=== PATIENT | male | born 1940 | race Caucasian/White ===

== ENCOUNTER 2016-10-31 23:27 | Emergency (ER) | payer MEDICARE, OTHER ==
[2016-10-31 23:37] LABS: Hematocrit 36.4 % (42.0-52.0); Hemoglobin 12.1 gm/dL (13.5-18.0); Mean Cell Volume 86.1 fl (78-100); Mean Corpuscular Hemoglobin 28.6 pg (27-31); Mean Corpuscular Hgb Conc 33.2 g/dl (32-36); Mean Platelet Volume 12.2 fl (6.0-9.5); Neutrophil # 6.4 K/mm3 (1.3-6.0); Neutrophil % 69.6 % (42-75.0); Platelet Count 116 K/mm3 (150-450); Red Blood Count 4.23 M/mm3 (4.7-6.0); Red Cell Distribution Width 13.9 % (11.5-14.0); White Blood Count 9.2 K/mm3 (4.0-10.5)
[2016-10-31 23:49] LABS: Prothrombin Time (Patient) 10.7 Seconds (9.4-11.4)
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
[2016-10-31 23:50] LABS: INR 1.03 INR (0.90-1.10); Partial Thrombolplastin Time 25.2 Seconds (24-32)
[2016-11-01] LABS: ALT 44 U/L (19-67); AST 63 U/L (0-48); Albumin * 3.2 gm/dl (3.4-5.0); Alkaline Phosphatase * 121 U/L (50-170); Amylase * 72 U/L (25-115); Anion Gap 19.3 mmol/L (6.8-13.8); BNP * 317 pg/mL (5-350); Bilirubin, Total 0.4 mg/dL (0.0-1.1); Blood Urea Nitrogen 8 mg/dL (6-23); Ca. Corrected For Albumin 8.8 mg/dL (8.4-10.2); Calcium * 8.5 mg/dL (7.9-10.9); Carbon Dioxide 22.3 mmol/L (24-32.6); Chloride 95 mmol/L (97-106); Glucose * 113 mg/dL (70-110); Lipase 172 U/L (73-393); Potassium 3.6 mmol/L (3.4-4.6); Sodium 133 mmol/L (132-142); Total Protein 6.8 gm/dL (6.2-8.2)
[2016-11-01 00:01] LABS: Troponin I Less than 0.017 ng/ml (0.00-0.10)
[2016-11-01] MEDS: NORMAL SALINE 1,000 ML IV PRN (00:03)
[2016-11-01] MEDS ORDERED: HYDROcodone/ACETAMINOPHEN 1 EACH TABLET ONE (00:11)
[2016-11-01] MEDS: HYDROcodone/ACETAMINOPHEN 1 EACH TABLET PO ONE (00:13)
[2016-11-01] MEDS ORDERED: MORPHINE SULFATE 2 MG/ML DISP.SYRIN ONE (01:13)
[2016-11-01] MEDS: MORPHINE SULFATE 2 MG/ML DISP.SYRIN IV ONE (01:15)
[2016-11-01 01:17] LABS: Urine Bilirubin Negative (NEGATIVE); Urine Blood 25 /ul (NEGATIVE); Urine Ketone Negative (NEGATIVE); Urine Nitrite Negative (NEGATIVE); Urine Protein Negative (NEGATIVE); Urine Specific Gravity <=1.005 SP.GR. (1.005-1.030); Urine Urobilinogen Normal (NORMAL)
[2016-11-01 01:33] LABS: Urine Appearance Clear; Urine Color Pale Yellow
[2016-11-01 01:34] LABS: Urine Bacteria None Seen; Urine RBC 0-5 /hpf (0-5); Urine WBC 0-5 /hpf (0-5)
[2016-11-01 02:23] VITALS: BP 142/80
== END 2016-11-01 01:20 | disposition short-term general hospital (02) ==
LOC: ER 23:27
DX: S12.100A Unspecified displaced fracture of second cervical vertebra, initial encounter for closed fracture (principal); S22.43XA Multiple fractures of ribs, bilateral, initial encounter for closed fracture; Z87.891 Personal history of nicotine dependence; W10.9XXA Fall (on) (from) unspecified stairs and steps, initial encounter
CPT/HCPCS: 36415; 70450; 71010; 72125; 80053; 81001; 82150; 83690; 83880; 84484; 85025; 85610; 85730; 86850; 86900; 93005; 96374; 99285; G0481

== ENCOUNTER 2019-11-15 04:45 | Observation (INO) ==
--- NOTE | 2019-11-15 05:30 | ERNOTE ---
GI Bleeding/Rectal Pain ER Date of Service: 11/15/19 Presenting Symptoms: rectal bleeding Time Seen by Provider: 11/15/19 05:17 Source: patient, family Exam Limitations: no limitations Immunizations: IMMUNIZATION HX Immunizations Up to Date Yes History of Influenza Vaccine Yes Hx Pneumococcal Vaccination Yes Allergies/Adverse Reactions: Allergies No Known Allergies Allergy (Verified 11/15/19 04:56) Home Medications: HOME MEDICATIONS Aspirin [Aspir-Low] 81 mg PO DAILY 11/01/16 [Last Taken 01/24/19] ibuprofen 600 mg tablet 600 mg PO Q6H PRN 12/30/17 [Last Taken Unknown] clopidogrel 75 mg tablet 75 mg PO DAILY #90 tab 03/23/19 [Last Taken Unknown] simvastatin 80 mg tablet 80 mg PO QPM #90 tab 03/23/19 [Last Taken Unknown] pantoprazole 40 mg tablet,delayed release 40 mg PO DAILY #90 tab 05/27/19 [Last Taken Unknown] gabapentin 300 mg capsule 600 mg PO BID #360 cap 08/19/19 [Last Taken Unknown] tramadol 50 mg tablet 100 mg PO TID PRN #180 tab 09/16/19 [Last Taken Unknown] atenolol 25 mg tablet 25 mg PO DAILY #90 tab 10/04/19 [Last Taken Unknown] Narrative: Patient presents to the ED this am with bright red blood per rectum that he noticed this morning when he went to the bathroom. He reports that the blood was gushing from the rectum at home. No vomiting, his bowels have been normal recently. No black stools. No fever, but he felt hot at home. Mild RLQ abdominal discomfort. Review of Systems - Review of Systems Constitutional: Present: See HPI, weakness. Absent: weight loss EYE: Present: no symptoms reported ENT: Present: no symptoms reported Respiratory: Present: other - chronically short of breath due to previous lung resection. Cardiology: Absent: chest pain, palpitations, edema Gastrointestinal/Abdominal: Present: See HPI Genitourinary: Present: no symptoms reported Musculoskeletal: Present: no symptoms reported Skin: Present: no symptoms reported Neurological: Present: no symptoms reported Endocrine: Present: no symptoms reported Hematologic/Lymphatic: Present: no symptoms reported. Absent: easy bruising, easy bleeding Psych: Present: no symptoms reported All Other Systems: All systems neg except as marked Medical History (Last Reviewed 11/15/19 @ 05:44 by Trupti Don MD) Subcapital fracture of neck of left femur (Acute) Non-small cell cancer of left lung (Chronic) Non-small cell cancer of right lung (Chronic) Leucocytosis (Acute) Acute blood loss anemia (Acute) Hangman's fracture (Acute) Multiple fractures of ribs of both sides (Acute) Vasogenic brain edema (Resolved) Onset Date: ~01/10/13 Seizure (Inactive) Rib fracture (Resolved) Pneumothorax (Resolved) Peripheral vascular disease (Chronic) Occlusion and stenosis of bilateral carotid arteries (Acute) Onset Date: ~11/21/09 Neuralgia (Acute) Neck fracture (Resolved) Onset Date: ~11/01/16 C2 Lung cancer (Acute) Onset Date: ~2010 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 Lesion of right lung (Acute) Insomnia (Acute) Hyponatremia (Acute) Hypertension (Chronic) Hyperlipidemia (Chronic) Heart murmur (Resolved) as a child Heart disease (Acute) GERD (gastroesophageal reflux disease) (Acute) Sternum fx (Acute) Carotid artery disease (Acute) neck Brain metastases (Acute) Onset Date: ~12/21/12 Brain lesion (Acute) Onset Date: ~12/21/12 Brain cancer (Acute) [facility] Atherosclerosis of arteries of extremities (Acute) Asthma (Acute) Onset Date: ~06/27/14 Chronic pain Surgical History: Surgical History (Last Reviewed 11/15/19 @ 05:44 by Trupti Don MD) History of angioplasty Onset Date: 09/12/17 History of appendectomy Onset Date: ~1952 History of brain surgery Onset Date: ~09/09/13 Craniotomy; adult tumor resection Dr. Edgar Hua, [facility] History of carotid endarterectomy Onset Date: ~2009 [facility]-left carotid artery History of colonoscopy Onset Date: ~10/25/10 Dr. Guevara-benign hyperplastic polyp @ rectum, benign tubular adenoma @ cecum, benign tubular adenoma @ 40cm History of cystoscopy Onset Date: ~07/05/09 Dr. Shetty History of endarterectomy Onset Date: ~05/2009 stents left and right common femoral History of hemiarthroplasty of left hip Onset Date: ~01/30/16 left hip cemented yvette-arthroplasty per Dr. Pardo History of lobectomy of lung Onset Date: ~2010 left lung upper [facility] History of thoracotomy Onset Date: ~05/03/11 Dr. Tania Das, [facility] Status post insertion of iliac artery stent Onset Date: Unknown right and left lower extremities Family History: Family History (Last Reviewed 11/15/19 @ 05:44 by Trupti Don MD) Brother Alive and well Sister Alive and well Sister Colon polyps Father , age 57 Lung abnormality Mother , age 75 Heart disease Sister , in explosion at ordance plant No problems noted. Sister Kidney stones Sister Pacemaker Brother DVT (deep venous thrombosis) Brother Heart problem Brother Heart problem Brother Heart problem Social History: (Last Reviewed 11/15/19 @ 05:44 by Trupti Don MD) Social History: Marital status: household members: none current occupational status: retired Highest education level completed: 8th grade Service: No Tobacco: Smoking Status: Former smoker Alcohol: alcohol intake: current alcohol intake frequency: 3 or more drinks per day Substance Use: substance use type: does not use Dietary Habits: caffeine: Yes Type: coffee Physical Exam - Physical Exam General Appearance: Present: wd/wn, alert, no apparent distress Head Exam: Present: normal inspection, no evidence of injury Eye Exam: Normal inspection: bilateral, PERRL: bilateral Ears, Nose, Throat: Present: normal ENT inspection Neck: Present: normal inspection, nontender Respiratory: Present: no respiratory distress, normal breath sounds, no accessory muscle use, chest nontender, lungs clear Cardiovascular/Chest: Present: regular rate, rhythm, no murmur, normal peripheral pulses Gastrointestinal/Abdominal: Present: tenderness - mild RLQ, no guarding or rebound., abnormal bowel sounds - hyperactive. , distended, other - some distention.. Absent: guarding, rebound Rectal Exam: Present: other - no active bleeding, but gross blood on rectal exam. Extremity Exam: Present: normal inspection, non-tender Neurological Exam: Present: alert, oriented, normal mood/affect, no motor/sensory deficits Skin Exam: Present: normal color, warm/dry Progress - Results and Orders Patient's Lab Results:: I have reviewed the patient's lab results. - Vital Signs Patient's Vital Signs:: I have reviewed the patient's vital signs. Vital Signs: Vital Signs 11/15/19 04:46 Temperature 36.5 C Pulse Rate 90 Respiratory Rate 20 Blood Pressure 192/83 H O2 Sat by Pulse Oximetry 96 - EKG EKG #1 EKG: NSR EKG Comments: First degree AVB. AK 253 msec. No significant change from 11/01/16. - CT/Ultrasound CT/Ultrasound Narrative: CT abdomen/pelvis done with IV contrast only, patient could not tolerate oral contrast. No acute changes, no masses, abscess, or adenopathy. Dense aortoiliac vascular calcium with no aneurysm. No renal mass, stone, or obstructive uropathy. - Progress/Reassessment Chief Complaint: Rectal Bleeding Progress Note-Subjective: 11/15/19 05:55 Unable to tolerate oral contrast, started vomiting. Will do CT with just IV contrast. Zofran given. Departure Clinical Impression: Rectal bleeding - Departure Disposition: Short Term Hospital Inpatient Condition: Stable Referrals: Suhail Drake DO [Primary Care Provider] -
[2019-11-15] MEDS ORDERED: DIATRIZOATE MEGLUMINE, SODIUM 30 ML BTL PO ONE (05:41)
[2019-11-15 05:51] LABS: Hematocrit 36.6 % (42.0-52.0); Hemoglobin 11.6 gm/dL (13.5-18.0); Mean Cell Volume 89.1 fl (78-100); Mean Corpuscular Hemoglobin 28.2 pg (27-31); Mean Corpuscular Hgb Conc 31.7 g/dl (32-36); Mean Platelet Volume 12.3 fl (8-11.3); Neutrophil # 9.7 K/mm3 (1.3-6.0); Neutrophil % 80.5 % (42-75.0); Platelet Count 150 K/mm3 (150-450); Red Blood Count 4.11 M/mm3 (4.7-6.0); White Blood Count 12.1 K/mm3 (4.0-10.5)
[2019-11-15] MEDS ORDERED: ONDANSETRON HCL/PF 2 MG/ML VIAL IV ONE (05:54)
[2019-11-15 06:01] LABS: Prothrombin Time (Patient) 10.3 Seconds (9.1-10.7)
[2019-11-15 06:03] LABS: INR 1.04 INR (0.92-1.08); Partial Thrombolplastin Time 26.6 Seconds (24-32)
[2019-11-15] MEDS ORDERED: ATENOLOL 50 MG TABLET PO ONE (06:05)
[2019-11-15 06:06] LABS: Albumin * 3.5 gm/dl (3.4-5.0); Anion Gap 18.2 mmol/L (6.8-13.8); BUN/Creatinine Ratio 12.9 (9.0-21.6); Bilirubin, Total 0.2 mg/dL (0.0-1.1); Ca. Corrected For Albumin 9.2 mg/dL (8.4-10.2); Calcium * 9.1 mg/dL (7.9-10.9); Carbon Dioxide 21.5 mmol/L (24-32.6); Potassium 3.7 mmol/L (3.4-4.6); Total Protein 7.4 gm/dL (6.2-8.2)
[2019-11-15] MEDS ORDERED: METOPROLOL TARTRATE 1 MG/ML AMPUL IV ONE (06:11)
[2019-11-15] MEDS ORDERED: MORPHINE SULFATE 2 MG/ML DISP.SYRIN IV ONE (07:32)
[2019-11-15 10:50] LABS: Urine Bilirubin Negative (NEGATIVE); Urine Ketone 5 mg/dL (NEGATIVE); Urine Nitrite Negative (NEGATIVE); Urine Protein Negative (NEGATIVE); Urine Urobilinogen Normal (NORMAL); Urine pH 5.5 pH (5.0-7.0)
[2019-11-15 11:05] LABS: Urine Appearance Clear (CLEAR); Urine Blood Negative /ul (NEGATIVE); Urine Color Pale Yellow
[2019-11-15 11:06] LABS: Urine Bacteria None Seen; Urine RBC None Seen /hpf (0-5); Urine WBC None Seen /hpf (0-5)
[2019-11-15 11:20] LABS: Hematocrit 35.1 % (42.0-52.0); Hemoglobin 11.4 gm/dL (13.5-18.0); Mean Cell Volume 88.2 fl (78-100); Mean Corpuscular Hemoglobin 28.6 pg (27-31); Mean Corpuscular Hgb Conc 32.5 g/dl (32-36); Mean Platelet Volume 12.4 fl (8-11.3); Platelet Count 138 K/mm3 (150-450); Red Blood Count 3.98 M/mm3 (4.7-6.0); White Blood Count 15.9 K/mm3 (4.0-10.5)
[2019-11-15 15:21] LABS: Hematocrit 33.8 % (42.0-52.0); Mean Cell Volume 88.3 fl (78-100); Mean Corpuscular Hemoglobin 28.7 pg (27-31); Mean Corpuscular Hgb Conc 32.5 g/dl (32-36); Mean Platelet Volume 12.3 fl (8-11.3); Platelet Count 163 K/mm3 (150-450); Red Blood Count 3.83 M/mm3 (4.7-6.0); Red Cell Distribution Width 13.1 % (11.5-14.0); White Blood Count 14.1 K/mm3 (4.0-10.5)
--- NOTE | 2019-11-15 15:37 | HPDIS ---
Chief Complaint - Chief Complaint Date of Service: 11/15/19 Time of Service: 12:15 Chief Complaint: Bright red rectal bleeding History of Present Illness: Theo is a 79 yo male with peripheral arterial disease and on plavix. He reports at 0100 this morning he woke to use the bathroom and while passing a bowel movement felt a "pop" and then noticed a lot of bright red blood in the toilet. He went again a few hours later and it was still mostly bright red blood. He presented to the [facility] ER where his hemoglobin was 11.6. He reports no change to medication or diet. No nausea, vomiting, or diarrhea. He reports taking daily stool softener and does not usually strain. Medical History (Last Reviewed 11/15/19 @ 08:08 by Lesly Davies RN) Subcapital fracture of neck of left femur (Acute) Non-small cell cancer of left lung (Chronic) Non-small cell cancer of right lung (Chronic) Leucocytosis (Acute) Acute blood loss anemia (Acute) Hangman's fracture (Acute) Multiple fractures of ribs of both sides (Acute) Vasogenic brain edema (Resolved) Onset Date: ~01/10/13 Seizure (Inactive) Rib fracture (Resolved) Pneumothorax (Resolved) Peripheral vascular disease (Chronic) Occlusion and stenosis of bilateral carotid arteries (Acute) Onset Date: ~11/21/09 Neuralgia (Acute) Neck fracture (Resolved) Onset Date: ~11/01/16 C2 Lung cancer (Acute) Onset Date: ~2010 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 Lesion of right lung (Acute) Insomnia (Acute) Hyponatremia (Acute) Hypertension (Chronic) Hyperlipidemia (Chronic) Heart murmur (Resolved) as a child Heart disease (Acute) GERD (gastroesophageal reflux disease) (Acute) Sternum fx (Acute) Carotid artery disease (Acute) neck Brain metastases (Acute) Onset Date: ~12/21/12 Brain lesion (Acute) Onset Date: ~12/21/12 Brain cancer (Acute) [facility] Atherosclerosis of arteries of extremities (Acute) Asthma (Acute) Onset Date: ~06/27/14 Chronic pain Surgical History: Surgical History (Last Reviewed 11/15/19 @ 08:09 by Lesly Davies RN) History of angioplasty Onset Date: 09/12/17 History of appendectomy Onset Date: ~1952 History of brain surgery Onset Date: ~09/09/13 Craniotomy; adult tumor resection Dr. Edgar Hua, [facility] History of carotid endarterectomy Onset Date: ~2009 [facility]-left carotid artery History of colonoscopy Onset Date: ~10/25/10 Dr. Guevara-benign hyperplastic polyp @ rectum, benign tubular adenoma @ cecum, benign tubular adenoma @ 40cm History of cystoscopy Onset Date: ~07/05/09 Dr. Shetty History of endarterectomy Onset Date: ~05/2009 stents left and right common femoral History of hemiarthroplasty of left hip Onset Date: ~01/30/16 left hip cemented yvette-arthroplasty per Dr. Pardo History of lobectomy of lung Onset Date: ~2010 left lung upper [facility] History of thoracotomy Onset Date: ~05/03/11 Dr. Tania Das, [facility] Status post insertion of iliac artery stent Onset Date: Unknown right and left lower extremities Family History: Family History (Last Reviewed 11/15/19 @ 08:11 by Lesly Davies RN) Brother Alive and well Sister Alive and well Sister Colon polyps Father , age 57 Lung abnormality Mother , age 75 Heart disease Sister , in explosion at [employer] plant No problems noted. Sister Kidney stones Sister Pacemaker Brother DVT (deep venous thrombosis) Brother Heart problem Brother Heart problem Brother Heart problem Social History: (Last Reviewed 11/15/19 @ 08:12 by Lesly Davies RN) Social History: Marital status: lives independently: Yes household members: none current occupational status: retired Highest education level completed: 8th grade Service: No Tobacco: Smoking Status: Former smoker Alcohol: alcohol intake: current Alcohol type: beer alcohol intake frequency: 3 or more drinks per day Substance Use: substance use type: does not use Dietary Habits: caffeine: Yes Type: coffee Review Of Systems (GEN) - Review of Systems Generalized/Overall Review: Absent: Weakness, Chills, Fever EENTM: Present: No Symptoms Reported Respiratory: Absent: Cough, Shortness of Breath Cardiac: Absent: Chest Pain, Edema Abdominal: Present: Bright blood from rectum. Absent: Nausea, Vomiting, Hematemesis, Abdominal Pain, Constipation, Diarrhea, Melena Genitourinary: Absent: Burning, Itching, Urgency, Frequency Musculoskeletal: Present: No Symptoms Reported Neurological: Present: No Symptoms Reported Skin: Present: No Symptoms Reported Endocrine: Present: No Symptoms Reported Immunizations: IMMUNIZATION HX Immunizations Up to Date Yes History of Influenza Vaccine Yes Hx Pneumococcal Vaccination Yes Allergies/Adverse Reactions: Allergies Allergy/AdvReac Type Severity Reaction Status Date / Time No Known Allergies Allergy Verified 11/15/19 08:13 Home Medications: HOME MEDICATIONS Aspirin [Aspir-Low] 81 mg PO DAILY 11/01/16 [Last Taken 01/24/19] ibuprofen 600 mg tablet 600 mg PO Q6H PRN 12/30/17 [Last Taken Unknown] clopidogrel 75 mg tablet 75 mg PO DAILY #90 tab 03/23/19 [Last Taken Unknown] simvastatin 80 mg tablet 80 mg PO QPM #90 tab 03/23/19 [Last Taken Unknown] pantoprazole 40 mg tablet,delayed release 40 mg PO DAILY #90 tab 05/27/19 [Last Taken Unknown] gabapentin 300 mg capsule 600 mg PO BID #360 cap 08/19/19 [Last Taken Unknown] atenolol 25 mg tablet 25 mg PO DAILY #90 tab 10/04/19 [Last Taken Unknown] Cetirizine HCl [All Day Allergy] 10 mg PO DAILY 11/15/19 [Last Taken Unknown] Multivit-Min/FA/Lycopen/Lutein [Centrum Silver Tablet] 1 ea PO DAILY 11/15/19 [Last Taken Unknown] traMADol HCL [Tramadol HCl] 100 mg PO BID 11/15/19 [Last Taken Unknown] Exam - Exam Vital Signs: Vital Signs - Last Taken Temp 36.6 C 11/15/19 14:00 Pulse 95 11/15/19 14:00 Resp 16 11/15/19 14:00 BP 97/52 11/15/19 14:00 Pulse Ox 95 11/15/19 14:00 Constitutional: Present: Alert, Oriented x3, Cooperative ENT Exam: Present: hearing grossly normal Eye Exam: bilateral eye: normal inspection Respiratory: Present: lungs clear, normal breath sounds Cardiovascular/Chest: Present: regular rate, rhythm, no murmur Peripheral Pulses: radial (R): 2+, radial (L): 2+ Abdomen: Present: Normal bowel sounds, soft, nontender, nondistended, no rebound tenderness, no hepatospenomegaly /Rectal: Present: hemorrhoids - external hemorrhoid with tiny open wound, no active drainage/bleeding Skin Exam: Present: normal color, warm/dry, no cyanosis Eye contact: Present: cooperative, good eye contact, normal speech Thoughts: Present: normal thought pattern, no apparent hallucination Diagnostic Studies: Abnormal Lab Results 11/15/19 11/15/19 11/15/19 Range/Units 05:30 05:30 05:30 WBC 12.1 H (4.0-10.5) K/mm3 RBC 4.11 L (4.7-6.0) M/mm3 Hgb 11.6 L (13.5-18.0) gm/dL Hct 36.6 L (42.0-52.0) % MCHC 31.7 L (32-36) g/dl Plt Count (150-450) K/mm3 MPV 12.3 H (8-11.3) fl Immature Gran % (Auto) 0.70 H (0.001-0.429) % Immature Gran # (Auto) 0.08 H (0.000-0.0310) K/mm3 Neutrophils % 80.5 H (42-75.0) % Lymphocytes % 10.9 L (20-51) % Neutrophils # 9.7 H (1.3-6.0) K/mm3 Lymphocytes # 1.31 L (1.5-3.5) k/mm3 Carbon Dioxide 21.5 L (24-32.6) mmol/L Anion Gap 18.2 H (6.8-13.8) mmol/L Random Glucose 117 H (70-110) mg/dL Stool Occult Blood Positive H 11/15/19 Range/Units 11:15 WBC 15.9 H D (4.0-10.5) K/mm3 RBC 3.98 L (4.7-6.0) M/mm3 Hgb 11.4 L (13.5-18.0) gm/dL Hct 35.1 L (42.0-52.0) % MCHC (32-36) g/dl Plt Count 138 L (150-450) K/mm3 MPV 12.4 H (8-11.3) fl Immature Gran % (Auto) (0.001-0.429) % Immature Gran # (Auto) (0.000-0.0310) K/mm3 Neutrophils % (42-75.0) % Lymphocytes % (20-51) % Neutrophils # (1.3-6.0) K/mm3 Lymphocytes # (1.5-3.5) k/mm3 Carbon Dioxide (24-32.6) mmol/L Anion Gap (6.8-13.8) mmol/L Random Glucose (70-110) mg/dL Stool Occult Blood Laboratory Results WBC 15.9 K/mm3 (4.0-10.5) H D 11/15/19 11:15 RBC 3.98 M/mm3 (4.7-6.0) L 11/15/19 11:15 Hgb 11.4 gm/dL (13.5-18.0) L 11/15/19 11:15 Hct 35.1 % (42.0-52.0) L 11/15/19 11:15 MCV 88.2 fl (78-100) 11/15/19 11:15 MCH 28.6 pg (27-31) 11/15/19 11:15 MCHC 32.5 g/dl (32-36) 11/15/19 11:15 RDW 13.0 % (11.5-14.0) 11/15/19 11:15 Plt Count 138 K/mm3 (150-450) L 11/15/19 11:15 MPV 12.4 fl (8-11.3) H 11/15/19 11:15 Immature Gran % (Auto) 0.70 % (0.001-0.429) H 11/15/19 05:30 Immature Gran # (Auto) 0.08 K/mm3 (0.000-0.0310) H 11/15/19 05:30 Neutrophils % 80.5 % (42-75.0) H 11/15/19 05:30 Lymphocytes % 10.9 % (20-51) L 11/15/19 05:30 Monocytes % 7.5 % (0.0-9) 11/15/19 05:30 Eosinophils % 0.2 % (0.0-3.0) 11/15/19 05:30 Basophils % 0.2 % (0.0-1.0) 11/15/19 05:30 Nucleated RBC % 0.0 k/mm3 (0-1) 11/15/19 05:30 Neutrophils # 9.7 K/mm3 (1.3-6.0) H 11/15/19 05:30 Lymphocytes # 1.31 k/mm3 (1.5-3.5) L 11/15/19 05:30 Monocytes # 0.9 k/mm3 (0.0-1.0) 11/15/19 05:30 Eosinophils # 0.0 k/mm3 (0.0-0.7) 11/15/19 05:30 Absolute Basophils 0.0 k/mm3 (0.0-0.1) 11/15/19 05:30 PT 10.3 Seconds (9.1-10.7) 11/15/19 05:30 INR (Anticoag Therapy) 1.04 INR (0.92-1.08) 11/15/19 05:30 PTT ([place]) 26.6 Seconds (24-32) 11/15/19 05:30 Sodium 135 mmol/L (132-142) 11/15/19 05:30 Plasma Sodium 135 mmol/L (130-142) 11/15/19 05:30 Potassium 3.7 mmol/L (3.4-4.6) 11/15/19 05:30 Chloride 99 mmol/L (97-106) 11/15/19 05:30 Carbon Dioxide 21.5 mmol/L (24-32.6) L 11/15/19 05:30 Anion Gap 18.2 mmol/L (6.8-13.8) H 11/15/19 05:30 BUN 13 mg/dL (6-23) 11/15/19 05:30 Creatinine 1.01 mg/dL (0.4-1.4) 11/15/19 05:30 Est GFR (Non-Af Amer) 76 mL/min (60-130) 11/15/19 05:30 BUN/Creatinine Ratio 12.9 (9.0-21.6) 11/15/19 05:30 Random Glucose 117 mg/dL (70-110) H 11/15/19 05:30 Calcium 9.1 mg/dL (7.9-10.9) 11/15/19 05:30 Calcium Adj for Albumin 9.2 mg/dL (8.4-10.2) 11/15/19 05:30 Total Bilirubin 0.2 mg/dL (0.0-1.1) 11/15/19 05:30 AST 23 U/L (0-48) 11/15/19 05:30 ALT 21 U/L (19-67) 11/15/19 05:30 Alkaline Phosphatase 71 U/L (50-170) 11/15/19 05:30 Total Protein 7.4 gm/dL (6.2-8.2) 11/15/19 05:30 Albumin 3.5 gm/dl (3.4-5.0) 11/15/19 05:30 Urine Color Pale yellow 11/15/19 10:25 Urine Appearance Clear (CLEAR) 11/15/19 10:25 Urine pH 5.5 pH (5.0-7.0) 11/15/19 10:25 Ur Specific [place] 1.010 SP.GR. (1.005-1.030) 11/15/19 10:25 Urine Protein Negative mg/dL (NEGATIVE) 11/15/19 10:25 Urine Glucose (UA) Negative mg/dL (NEGATIVE) 11/15/19 10:25 Urine Ketones 5 mg/dL (NEGATIVE) 11/15/19 10:25 Urine Blood Negative /ul (NEGATIVE) 11/15/19 10:25 Urine Nitrate Negative (NEGATIVE) 11/15/19 10:25 Urine Bilirubin Negative mg/dl (NEGATIVE) 11/15/19 10:25 Urine Urobilinogen Normal EU/dl (NORMAL) 11/15/19 10:25 Ur Leukocyte Esterase Negative /ul (NEGATIVE) 11/15/19 10:25 Urine RBC None seen /hpf (0-5) 11/15/19 10:25 Urine WBC None seen /hpf (0-5) 11/15/19 10:25 Ur Epithelial Cells 0-5 /hpf (0-5) 11/15/19 10:25 Urine Bacteria None seen (NONE) 11/15/19 10:25 Urine Culture Comments No culture indicated 11/15/19 10:25 Stool Occult Blood Positive H 11/15/19 05:30 Blood Type A Positive 11/15/19 05:45 Antibody Screen Negative 11/15/19 05:45 Assessment/Plan - Narrative Narrative: Theo is a 79 yo male with bleeding external hemorrhoid. It appears to have stopped and hemoglobin is 11.6 and recheck is 11.4. Will plan to recheck hemoglobin in a few more hours to further confirm bleeding has stopped. He is feeling well and his bloody stools are decreasing. If he is feeling welland bleeding has stabilized he may be discharged to home later this afternoon. - Assessment/Plan (1) External hemorrhoid, bleeding Problem: Acute (2) Rectal bleeding Problem: Acute (1) External hemorrhoid, bleeding Problem: Acute (2) Rectal bleeding Problem: Acute Date of Discharge:: 11/15/19 Hospital Course: Theo is a 79 yo male admitted for GI bleed. The source appears to be external hemorrhoid that has stopped bleeding. Initial hemoglobin was 11.6 in the ER. This dropped to 11.4 and then 11.0 His bloody stools decreased and appear to have stopped and he is feeling great. He will be discharged to home with outpatient follow up in 1 week. As the source appears to be an obvious external hemorrhoid I do not believe he needs colonoscopy. He may restart his plavix at home tomorrow, it was held today. He will continue to use stool softeners to keep from straining with bowel movements. Procedures Performed: none Results and Findings: Lab Pending Results 11/15/19 05:30: WBC 12.1 H, RBC 4.11 L, Hgb 11.6 L, Hct 36.6 L, MCV 89.1, MCH 28.2, MCHC 31.7 L, RDW 13.0, Plt Count 150, MPV 12.3 H, Immature Gran % (Auto) 0.70 H, Immature Gran # (Auto) 0.08 H, Neutrophils % 80.5 H, Lymphocytes % 10.9 L, Monocytes % 7.5, Eosinophils % 0.2, Basophils % 0.2, Nucleated RBC % 0.0, Neutrophils # 9.7 H, Lymphocytes # 1.31 L, Monocytes # 0.9, Eosinophils # 0.0, Absolute Basophils 0.0 11/15/19 05:30: PT 10.3, INR (Anticoag Therapy) 1.04, PTT ([place]) 26.6 11/15/19 05:30: Sodium 135, Plasma Sodium 135, Potassium 3.7, Chloride 99, Carbo n Dioxide 21.5 L, Anion Gap 18.2 H, BUN 13, Creatinine 1.01, Est GFR (Non-Af Amer) 76, BUN/Creatinine Ratio 12.9, Random Glucose 117 H, Calcium 9.1, Calcium Adj for Albumin 9.2, Total Bilirubin 0.2, AST 23, ALT 21, Alkaline Phosphatase 71, Total Protein 7.4, Albumin 3.5 11/15/19 05:30: Stool Occult Blood Positive H 11/15/19 05:45: Blood Type A Positive, Antibody Screen Negative 11/15/19 10:25: Urine Color Pale yellow, Urine Appearance Clear, Urine pH 5.5, Ur Specific [place] 1.010, Urine Protein Negative, Urine Glucose (UA) Negative, Urine Ketones 5, Urine Blood Negative, Urine Nitrate Negative, Urine Bilirubin Negative, Urine Urobilinogen Normal, Ur Leukocyte Esterase Negative, Urine RBC None seen, Urine WBC None seen, Ur Epithelial Cells 0-5, Urine Bacteria None seen, Urine Culture Comments No culture indicated 11/15/19 11:15: WBC 15.9 H D, RBC 3.98 L, Hgb 11.4 L, Hct 35.1 L, MCV 88.2, MCH 28.6, MCHC 32.5, RDW 13.0, Plt Count 138 L, MPV 12.4 H Discharge Location: Home Disposition: Home self-care Condition: Good Discharge Activity: Activity as tolerated Discharge Diet: General/regular food Referrals: Suhail Drake DO [Primary Care Provider] - One Week Problem Oriented Discharge Instructions to Patient/Family: Hemorrhoids, [id number] Complete Home Medications List: Complete Home Medication List: Aspirin [Aspir-Low] 81 mg PO DAILY 11/01/16 ibuprofen 600 mg tablet 600 mg PO Q6H PRN 12/30/17 clopidogrel 75 mg tablet 75 mg PO DAILY #90 tab 03/23/19 simvastatin 80 mg tablet 80 mg PO QPM #90 tab 03/23/19 pantoprazole 40 mg tablet,delayed release 40 mg PO DAILY #90 tab 05/27/19 gabapentin 300 mg capsule 600 mg PO BID #360 cap 08/19/19 atenolol 25 mg tablet 25 mg PO DAILY #90 tab 10/04/19 Cetirizine HCl [All Day Allergy] 10 mg PO DAILY 11/15/19 Multivit-Min/FA/Lycopen/Lutein [Centrum Silver Tablet] 1 ea PO DAILY 11/15/19 traMADol HCL [Tramadol HCl] 100 mg PO BID 11/15/19 Forms: Patient Portal Registration
[2019-11-15 17:19] VITALS: BP 157/56
== END 2019-11-15 16:15 | disposition home or self-care (01) ==
LOC: ER 04:45 → MS 04:45
PROVIDERS: ADMIT Family Medicine; ATTEND Family Medicine
DX: K64.4 Residual hemorrhoidal skin tags; K62.5 Hemorrhage of anus and rectum; D64.9 Anemia, unspecified; Z85.118 Personal history of other malignant neoplasm of bronchus and lung; Z79.01 Long term (current) use of anticoagulants; Z87.891 Personal history of nicotine dependence; I73.89 Other specified peripheral vascular diseases
CPT/HCPCS: 36415; 71010; 71045; 74177; 80053; 81001; 82272; 85025; 85027; 85610; 85730; 86850; 93005; 96374; 96375; 99283; 99285; G0378; J2405; Q9963; Q9967